=== PATIENT | female | born 1945 | race African-American/Black ===

== ENCOUNTER → 2021-01-25 | Outpatient (CLI) | payer OTHER | LOC: MRI 01-19 14:30 | PROVIDERS: ATTEND Internal Medicine | DX: I67.82 Cerebral ischemia (principal); F03.90 Unspecified dementia, unspecified severity, without behavioral disturbance, psychotic disturbance, mood disturbance, and anxiety ==

== ENCOUNTER 2021-05-05 14:13 | Emergency (ER) | payer OTHER ==
--- NOTE | ~2021-05-05 | EMS ---
[place] [id number] EMS Patient Care Report Name: BETSY LAUREN Room #: DEP CHICHO Alcantara#: [id number] Admission: 05/05/21 Attend Phys: Discharge: 05/05/21 Date of : 43 Report #: [id number] THIS REPORT FOR: //name// Report Transmitted: 05/09/2021 15:14 EMS Care Summary [place], [place]/[facility] Incident [id number] @ 05/05/2021 13:10 Incident Location [address] [place] [address] Patient BETSY LAUREN Female, 75 Years 1945 Patient Address [address] [place], [place] [id number] Patient History Congestive Heart Failure (CHF),Dementia,Alzheimer's,Novel Coronavirus (COVID-19), Patient Allergies No known allergies, Patient Medications Prilosec, Allopurinol, Apixaban, Pravastatin, Guaifenesin, Iron, Vitamin D, Oxygen, Chief Complaint HYPOGLYCEMIA Disposition Transported Lights/[place] Dispatch Reason Unconscious/Fainting Transported To [facility] Narrative DISPATCHED EMERGENCY ON AN UNCONSCIOUS. PUMPER 41 ON SCENE UPON ARRIVAL. FAMILY MEETS EMS AT DOOR. HOME HEALTH NURSE ON SCENE. 75 Y/O FEMALE LAYING SUPINE IN [address] [address] EMS Patient Care Report Name: BETSY LAUREN Room #: DEP CHICHO Alcantara#: [id number] Admission: 05/05/21 Attend Phys: Discharge: 05/05/21 Date of : 43 Report #: [id number] BED UNCONSCIOUS. GCS 3. PUPILS ARE EQUAL AND REACTIVE. PT IS ON HOME OXYGEN. V/S'S OBTAINED BY PUMPER 41 PRIOR TO EMS ARRIVAL AND STATE THAT PT'S BLOOD SUGAR IS 54. FAMILY STATES THAT PT DOES NOT HAVE A HISTORY OF DIABETES AND HAS NEVER HAD A LOW BLOOD SUGAR THAT THEY KNOW OF. STATES THAT PT WAS LAST SEEN NORMAL LAST NIGHT BEFORE BED. PT IS NORMALLY ALERT TO SELF AND FAMILY BUT NOT ALL THINGS DUE TO ALZHEIMER'S/DEMENTIA AND THAT IS NORMAL FOR HER. ALSO STATES THAT SHE OFTEN STAYS UP ALL NIGHT AND SLEEPS DURING THE DAY. STATES THAT PT IS ON HOME OXYGEN FOR COVID-19 RECOVERY. STATES THEY ATTEMPTED TO WAKE HER UP BUT WERE UNSUCCESSFUL SO THEY DECIDED TO WAIT UNTIL HER HOME HEALTH NURSE CAME WHICH WAS ABOUT 1 HOUR. 911 WAS CALLED AFTER PT'S NURSE WAS UNABLE TO WAKE PT. IV'S ATTEMPTED WITHOUT ESTABLISHMENT. FAMILY STATES THAT PT IS A "HARD STICK" AND THEY ALWAYS HAVE TROUBLE AT THE HOSPITAL WITH THIS. IV ESTABLISHED. V/S'S OBTAINED. D10 ADMINISTERED PER HYPOGLYCEMIA PROTOCOL. IV BECOMES DISLODGED AFTER 1OO ML OF D10 WAS ADMINISTERED. V/S'S OBTAINED. GLUCOSE IS NOW 48. IV'S ATTEMPTED WITHOUT ESTABLISHMENT. ECG OBTAINED. UNABLE TO ESTABLISH IV ACCESS. IO ESTABLISHED. IT IS NOW OBSERVED THAT PT'S H/R AND R/R START DECREASING RAPIDLY. PT NOW HAS NO PALPABLE PULSE AND IS APNEIC. ECG SHOWING PEA. MOVED PT WITHOUT INCIDENT TO FLOOR. FAST PATCH AED PADS PLACED. CPR CONTINUED. FLUIDS ADMINISTERED VIA IO. EPI ADMINISTERED. I-GEL PLACED AND OXYGEN ADMINISTERED. PT HAS PINK/RED FROTHY LIQUID COMING FROM I-GEL AND MOUTH. PULSE CHECK PERFORMED WITH NO PALPABLE CAROTID PULSE WITH RHYTHM SHOWING PEA. CPR CONTINUED. EPI ADMINISTERED. CAPNOGRAPHY OBTAINED. PT SUCTIONED. PULSE CHECK WITH PALPABLE CAROTID PULSE. RHYTHM SHOWING SINUS ARRYTHMIA. MOVED PT WITHOUT INCIDENT VIA LONG SPINE BOARD TO STRETCHER. MOVED PT WITHOUT INCIDENT TO AMBULANCE VIA STRETCHER. TRANSPORTED EMERGENCY TO [facility]. 12-LEAD ECG OBTAINED. V/S'S OBTAINED. RHYTHM CONTINUOUSLY MONITORED. PINK/RED FROTHY LIQUID TO I-GEL AND AROUND MOUTH. PT SUCTIONED. REPORT CALLED TO HOSPITAL. V/S'S OBTAINED. RHYTHM IS NOW SHOWING BRADYCARDIA. PALPABLE WEAK RADIAL PULSE. UNABLE TO AUSCULTATE B/P. PACING INITIATED PER PROTOCOL. ELECTRONIC AND MECHANICAL CAPTURE OBTAINED. H/R AND B/P IMPROVED. IO IS NO LONGER PATENT AND APPEARS TO HAVE PARTIALLY DISLODGED. 2ND IO ESTABLISHED. MOVED WITHOUT INCIDENT TO ER HOSPITAL BED. PT CARE TRANSFERRED TO ED RN. PACING DISCONTINUED IN ER BY HOSPITAL STAFF AFTER MOVING PT TO HOSPITAL BED. Initial Vitals @14:05P: 69,R: 5,EtCO2: 27, @14:04P: 22,BP: 93/69, @14:08P: 24,R: 5,EtCO2: 22, @14:08P: 23,BP: 120/75,GCS: 3,EtCO2: 20, @13:32P: 88,R: 14,BP: 99/55,GCS: 3,Glucose: 48,Revised Trauma: 8, @PTAP: 110,R: 14,BP: 98/40,Pain: 0/10,GCS: 3,Glucose: 54,Revised Trauma: 8, @13:28P: 90,R: 14,GCS: 3,Revised Trauma: 8, @13:45P: 0,R: 0,GCS: 3,Glucose: 98, @13:57P: 87,R: 7,GCS: 3,EtCO2: 14, @13:50P: 0,R: 8,GCS: 3, @13:55P: 94,R: 9,GCS: 3, [facility] [address] [place] [address] EMS Patient Care Report Name: BETSY LAUREN Room #: DEP CHICHO Alcantara#: [id number] Admission: 05/05/21 Attend Phys: Discharge: 05/05/21 Date of : 43 Report #: [id number] @14:00P: 94,R: 9,GCS: 3,EtCO2: 23, @14:01P: 78,R: 9,GCS: 3,EtCO2: 33, @14:02P: 41,R: 6,BP: 113/84,GCS: 3,EtCO2: 17,Revised Trauma: 6, @14:10P: 72,R: 6,GCS: 3,EtCO2: 14, @14:06P: 38,R: 5,GCS: 3,EtCO2: 24, Assessments @13:21MENTAL:Unresponsive,SKIN:HEENT:Eyes: Right Pupil: 4-mm,Eyes: Left Pupil: 4-mm,LUNG SOUNDS:ABDOMEN:PELVIS//GI:EXTREMITIES:Capillary Refill: Left Upper: < 2 Sec,Capillary Refill: Right Upper: < 2 Sec,PULSE:Radial: 2+ Normal,NEURO:@14:07MENTAL:Unresponsive,SKIN:HEENT:Eyes: Right: Non-Reactive,Eyes: Left: Non-Reactive,LUNG SOUNDS:ABDOMEN:PELVIS//GI:EXTREMITIES:PULSE:Carotid: 1+ Thready,NEURO: Impression Hypoglycemia (Not Diabetic) Procedures @13:46 Response: UnchangedSucceeded @13:47 Epinephrine 1:10 - 1 Milligrams (mg) - Intraosseous (IO) Response: Unchanged @13:50 Epinephrine 1:10 - 1 Milligrams (mg) - Intraosseous (IO) Response: Improved @14:10 Intraosseous - Normal Saline (.9% NaCl) 100cc (EZ-IO (Blue 25mm)) Site: PX-Gvjiy-Fenbf Distal Response: UnchangedSucceeded @14:13 Response: Unchanged @14:01 12-Lead ECG Response: UnchangedSucceeded @14:08 Response: Improved @13:39 3-Lead ECG Response: UnchangedSucceeded @13:20 ALS Assessment Response: UnchangedFailed @13:22 IV Therapy - cc (20 ga) Site: Forearm-Right Response: UnchangedFailed @13:24 IV Therapy - cc (18 ga) Site: Antecubital-Right Response: UnchangedFailed @13:25 IV Therapy - cc (22 ga) Site: Hand-Left Response: UnchangedFailed @13:26 IV Therapy - cc (20 ga) Site: Hand-Right Response: UnchangedFailed @13:28 IV Therapy - Saline Lock 10cc (20 ga) Site: Antecubital-Left Response: UnchangedSucceeded @13:29 Dextrose 10% - 100 Milliliters (ml) - Intravenous (IV) Response: Unchanged @13:32 General Comments Response: Unchanged @13:35 IV Therapy - cc (20 ga) Site: Forearm-Left Response: UnchangedFailed @13:37 IV Therapy - cc (22 ga) Site: Antecubital-Right Response: UnchangedFailed @13:42 IV Therapy - cc (22 ga) Site: Hand-Left Response: UnchangedFailed @13:43 Intraosseous - Normal Saline (.9% NaCl) 100cc (IO (Adult)) Site: BU-Htedt-Qalxc Distal Response: UnchangedSucceeded [address] [address] EMS Patient Care Report Name: BETSY LAUREN Room #: DEP ER MarineShanique#: [id number] Admission: 05/05/21 Attend Phys: Discharge: 05/05/21 Date of : 44 Report #: [id number] @PTAOxygen FlowRate: 4 Device: Nasal Cannula (NC) Response: Unchanged @13:49 iGEL Response: UnchangedSucceeded @13:49 Oxygen FlowRate: 15 Device: Bag Valve Mask (BVM) Response: UnchangedSucceeded @13:52 Suction Response: ImprovedSucceeded @13:51 General Comments Response: Unchanged @14:09 General Comments Response: Unchanged @13:57 Spinal Motion Restriction Response: UnchangedSucceeded @13:55 General Comments Response: Improved @14:00 Stretcher Response: Unchanged @14:05 Suction Response: ImprovedSucceeded Timeline AVIONICS TEST TECHNICIAN,Oxygen FlowRate: 4 Device: Nasal Cannula (NC) Response: Unchanged AVIONICS TEST TECHNICIAN,BP: 98/40 M,PULSE: 110,RR: 14 R,SPO2: Ox,ETCO2: ,B,PAIN: 0,GCS: 3, 13:08,Call Received 13:08,Dispatch Notified 13:10,Dispatched 13:13,En Route 13:17,On Scene 13:20,At Patient 13:20,ALS Assessment,Response: UnchangedFailed, 13:22,IV Therapy - cc 20 ga Site: Forearm-Right,Response: UnchangedFailed, 13:24,IV Therapy - cc 18 ga Site: Antecubital-Right,Response: UnchangedFailed, 13:25,IV Therapy - cc 22 ga Site: Hand-Left,Response: UnchangedFailed, 13:26,IV Therapy - cc 20 ga Site: Hand-Right,Response: UnchangedFailed, 13:28,IV Therapy - Saline Lock 10cc 20 ga Site: Antecubital-Left,Response: UnchangedSucceeded, 13:28,BP: 100/ M,PULSE: 90,RR: 14 R,SPO2: Ox,ETCO2: ,BG: ,PAIN: ,GCS: 3, 13:29,Dextrose 10% - 100 Milliliters (ml) - Intravenous (IV),Response: Unchanged 13:32,General Comments,Response: Unchanged 13:32,BP: 99/55 M,PULSE: 88,RR: 14 R,SPO2: Ox,ETCO2: ,B,PAIN: ,GCS: 3, 13:35,IV Therapy - cc 20 ga Site: Forearm-Left,Response: UnchangedFailed, 13:37,IV Therapy - cc 22 ga Site: Antecubital-Right,Response: UnchangedFailed, 13:39,3-Lead ECG,Response: UnchangedSucceeded, 13:42,IV Therapy - cc 22 ga Site: Hand-Left,Response: UnchangedFailed, 13:43,Intraosseous - Normal Saline (.9% NaCl) 100cc IO (Adult) Site: KX-Oqvsl-Mxpqg Distal,Response: UnchangedSucceeded, 13:45,BP: / M,PULSE: 0,RR: 0 R,SPO2: Ox,ETCO2: ,B,PAIN: ,GCS: 3, 13:46,Response: UnchangedSucceeded, 13:47,Epinephrine 1:10 - 1 Milligrams (mg) - Intraosseous (IO),Response: Unchanged 13:49,iGEL Response: UnchangedSucceeded, 13:49,Oxygen FlowRate: 15 Device: Bag Valve Mask (BVM) Response: UnchangedSucceeded, [address] [address] EMS Patient Care Report Name: BETSY LAUREN Room #: DEP M.R.#: [id number] Admission: 05/05/21 Attend Phys: Discharge: 05/05/21 Date of : 44 Report #: [id number] 13:50,BP: / M,PULSE: 0,RR: 8 R,SPO2: Ox,ETCO2: ,BG: ,PAIN: ,GCS: 3, 13:50,Epinephrine 1:10 - 1 Milligrams (mg) - Intraosseous (IO),Response: Improved 13:51,General Comments,Response: Unchanged 13:52,Suction Response: ImprovedSucceeded, 13:55,General Comments,Response: Improved 13:55,BP: / M,PULSE: 94,RR: 9 R,SPO2: Ox,ETCO2: ,BG: ,PAIN: ,GCS: 3, 13:57,Spinal Motion Restriction,Response: UnchangedSucceeded, 13:57,BP: / M,PULSE: 87,RR: 7 R,SPO2: Ox,ETCO2: 14 ,BG: ,PAIN: ,GCS: 3, 14:00,Stretcher,Response: Unchanged 14:00,BP: / M,PULSE: 94,RR: 9 R,SPO2: Ox,ETCO2: 23 ,BG: ,PAIN: ,GCS: 3, 14:00,Depart Scene 14:01,12-Lead ECG,Response: UnchangedSucceeded, 14:01,BP: / M,PULSE: 78,RR: 9 R,SPO2: Ox,ETCO2: 33 ,BG: ,PAIN: ,GCS: 3, 14:02,BP: 113/84 M,PULSE: 41,RR: 6 R,SPO2: Ox,ETCO2: 17 ,BG: ,PAIN: ,GCS: 3, 14:04,BP: 93/69 M,PULSE: 22,RR: R,SPO2: Ox,ETCO2: ,BG: ,PAIN: ,GCS: , 14:05,Suction Response: ImprovedSucceeded, 14:05,BP: / M,PULSE: 69,RR: 5 R,SPO2: Ox,ETCO2: 27 ,BG: ,PAIN: ,GCS: , 14:06,BP: / M,PULSE: 38,RR: 5 R,SPO2: Ox,ETCO2: 24 ,BG: ,PAIN: ,GCS: 3, 14:08,BP: / M,PULSE: 24,RR: 5 R,SPO2: Ox,ETCO2: 22 ,BG: ,PAIN: ,GCS: , 14:08,BP: 120/75 M,PULSE: 23,RR: R,SPO2: Ox,ETCO2: 20 ,BG: ,PAIN: ,GCS: 3, 14:08,Response: Improved 14:09,General Comments,Response: Unchanged 14:10,Intraosseous - Normal Saline (.9% NaCl) 100cc EZ-IO (Blue 25mm) Site: OP-Hytnl-Gxokj Distal,Response: UnchangedSucceeded, 14:10,BP: / M,PULSE: 72,RR: 6 R,SPO2: Ox,ETCO2: 14 ,BG: ,PAIN: ,GCS: 3, 14:11,At Destination 14:13,Response: Unchanged 14:26,Call Closed Disclaimer v1.1 Copyright 2021 [employer] This EMS Care Summary contains data elements from the applicable legal record (which may be displayed differently). It is designed to provide pertinent information for the following purposes: continuity of care, clinical quality, and state data reporting. The complete legal record is available to ED staff and administrators of the receiving hospital in [employer]'s Patient Tracker. All data is provided "as is."
--- NOTE | ~2021-05-05 | EMS ---
[address] [address] EMS Patient Care Report Name: BETSY LAUREN Room #: DEP CHICHO Alcantara#: [id number] Admission: 05/05/21 Attend Phys: Discharge: 05/05/21 Date of : 43 Report #: [id number] THIS REPORT FOR: //name// Report Transmitted: 05/08/2021 11:52 EMS Care Summary [place], [place]/[facility] Incident [id number] @ 05/05/2021 13:10 Incident Location [address] [place] [address] Patient BETSY LAUREN Female, 75 Years 1945 Patient Address [address] [place] [address] Patient History Congestive Heart Failure (CHF),Dementia,Alzheimer's,Novel Coronavirus (COVID-19), Patient Allergies No known allergies, Patient Medications Prilosec, Allopurinol, Apixaban, Pravastatin, Guaifenesin, Iron, Vitamin D, Oxygen, Chief Complaint HYPOGLYCEMIA Disposition Transported Lights/[place] Dispatch Reason Unconscious/Fainting Transported To [facility] Narrative DISPATCHED EMERGENCY ON AN UNCONSCIOUS. PUMPER [address] ON SCENE UPON ARRIVAL. FAMILY MEETS EMS AT DOOR. HOME HEALTH NURSE ON SCENE. 75 Y/O FEMALE LAYING SUPINE IN [address] [address] EMS Patient Care Report Name: BETSY LAUREN Room #: DEP CHICHO Alcantara#: [id number] Admission: 05/05/21 Attend Phys: Discharge: 05/05/21 Date of : 43 Report #: [id number] BED UNCONSCIOUS. GCS 3. PUPILS ARE EQUAL AND REACTIVE. PT IS ON HOME OXYGEN. V/S'S OBTAINED BY PUMPER 41 PRIOR TO EMS ARRIVAL AND STATE THAT PT'S BLOOD SUGAR IS 54. FAMILY STATES THAT PT DOES NOT HAVE A HISTORY OF DIABETES AND HAS NEVER HAD A LOW BLOOD SUGAR THAT THEY KNOW OF. STATES THAT PT WAS LAST SEEN NORMAL LAST NIGHT BEFORE BED. PT IS NORMALLY ALERT TO SELF AND FAMILY BUT NOT ALL THINGS DUE TO ALZHEIMER'S/DEMENTIA AND THAT IS NORMAL FOR HER. ALSO STATES THAT SHE OFTEN STAYS UP ALL NIGHT AND SLEEPS DURING THE DAY. STATES THAT PT IS ON HOME OXYGEN FOR COVID-19 RECOVERY. STATES THEY ATTEMPTED TO WAKE HER UP BUT WERE UNSUCCESSFUL SO THEY DECIDED TO WAIT UNTIL HER HOME HEALTH NURSE CAME WHICH WAS ABOUT 1 HOUR. 911 WAS CALLED AFTER PT'S NURSE WAS UNABLE TO WAKE PT. IV'S ATTEMPTED WITHOUT ESTABLISHMENT. FAMILY STATES THAT PT IS A "HARD STICK" AND THEY ALWAYS HAVE TROUBLE AT THE HOSPITAL WITH THIS. IV ESTABLISHED. V/S'S OBTAINED. D10 ADMINISTERED PER HYPOGLYCEMIA PROTOCOL. IV BECOMES DISLODGED AFTER 1OO ML OF D10 WAS ADMINISTERED. V/S'S OBTAINED. GLUCOSE IS NOW 48. IV'S ATTEMPTED WITHOUT ESTABLISHMENT. ECG OBTAINED. UNABLE TO ESTABLISH IV ACCESS. IO ESTABLISHED. IT IS NOW OBSERVED THAT PT'S H/R AND R/R START DECREASING RAPIDLY. PT NOW HAS NO PALPABLE PULSE AND IS APNEIC. ECG SHOWING PEA. MOVED PT WITHOUT INCIDENT TO FLOOR. FAST PATCH AED PADS PLACED. CPR CONTINUED. FLUIDS ADMINISTERED VIA IO. EPI ADMINISTERED. I-GEL PLACED AND OXYGEN ADMINISTERED. PT HAS PINK/RED FROTHY LIQUID COMING FROM I-GEL AND MOUTH. PULSE CHECK PERFORMED WITH NO PALPABLE CAROTID PULSE WITH RHYTHM SHOWING PEA. CPR CONTINUED. EPI ADMINISTERED. CAPNOGRAPHY OBTAINED. PT SUCTIONED. PULSE CHECK WITH PALPABLE CAROTID PULSE. RHYTHM SHOWING SINUS ARRYTHMIA. MOVED PT WITHOUT INCIDENT VIA LONG SPINE BOARD TO STRETCHER. MOVED PT WITHOUT INCIDENT TO AMBULANCE VIA STRETCHER. TRANSPORTED EMERGENCY TO [facility]. 12-LEAD ECG OBTAINED. V/S'S OBTAINED. RHYTHM CONTINUOUSLY MONITORED. PINK/RED FROTHY LIQUID TO I-GEL AND AROUND MOUTH. PT SUCTIONED. REPORT CALLED TO HOSPITAL. V/S'S OBTAINED. RHYTHM IS NOW SHOWING BRADYCARDIA. PALPABLE WEAK RADIAL PULSE. UNABLE TO AUSCULTATE B/P. PACING INITIATED PER PROTOCOL. ELECTRONIC AND MECHANICAL CAPTURE OBTAINED. H/R AND B/P IMPROVED. IO IS NO LONGER PATENT AND APPEARS TO HAVE PARTIALLY DISLODGED. 2ND IO ESTABLISHED. MOVED WITHOUT INCIDENT TO ER HOSPITAL BED. PT CARE TRANSFERRED TO ED RN. PACING DISCONTINUED IN ER BY HOSPITAL STAFF AFTER MOVING PT TO HOSPITAL BED. Initial Vitals @14:05P: 69,R: 5,EtCO2: 27, @14:04P: 22,BP: 93/69, @14:08P: 24,R: 5,EtCO2: 22, @14:08P: 23,BP: 120/75,GCS: 3,EtCO2: 20, @13:32P: 88,R: 14,BP: 99/55,GCS: 3,Glucose: 48,Revised Trauma: 8, @PTAP: 110,R: 14,BP: 98/40,Pain: 0/10,GCS: 3,Glucose: 54,Revised Trauma: 8, @13:28P: 90,R: 14,GCS: 3,Revised Trauma: 8, @13:45P: 0,R: 0,GCS: 3,Glucose: 98, @13:57P: 87,R: 7,GCS: 3,EtCO2: 14, @13:50P: 0,R: 8,GCS: 3, @13:55P: 94,R: 9,GCS: 3, [facility] [address] [place] [address] EMS Patient Care Report Name: BETSY LAUREN Room #: DEP CHICHO Alcantara#: [id number] Admission: 05/05/21 Attend Phys: Discharge: 05/05/21 Date of : 43 Report #: [id number] @14:00P: 94,R: 9,GCS: 3,EtCO2: 23, @14:01P: 78,R: 9,GCS: 3,EtCO2: 33, @14:02P: 41,R: 6,BP: 113/84,GCS: 3,EtCO2: 17,Revised Trauma: 6, @14:10P: 72,R: 6,GCS: 3,EtCO2: 14, @14:06P: 38,R: 5,GCS: 3,EtCO2: 24, Assessments @13:21MENTAL:Unresponsive,SKIN:HEENT:Eyes: Left Pupil: 4-mm,Eyes: Right Pupil: 4-mm,LUNG SOUNDS:ABDOMEN:PELVIS//GI:EXTREMITIES:Capillary Refill: Right Upper: < 2 Sec,Capillary Refill: Left Upper: < 2 Sec,PULSE:Radial: 2+ Normal,NEURO:@14:07MENTAL:Unresponsive,SKIN:HEENT:Eyes: Left: Non-Reactive,Eyes: Right: Non-Reactive,LUNG SOUNDS:ABDOMEN:PELVIS//GI:EXTREMITIES:PULSE:Carotid: 1+ Thready,NEURO: Impression Hypoglycemia (Not Diabetic) Procedures @13:46 Response: UnchangedSucceeded @13:47 Epinephrine 1:10 - 1 Milligrams (mg) - Intraosseous (IO) Response: Unchanged @13:50 Epinephrine 1:10 - 1 Milligrams (mg) - Intraosseous (IO) Response: Improved @14:10 Intraosseous - Normal Saline (.9% NaCl) 100cc (EZ-IO (Blue 25mm)) Site: QX-Fvxli-Fbykg Distal Response: UnchangedSucceeded @14:13 Response: Unchanged @14:01 12-Lead ECG Response: UnchangedSucceeded @14:08 Response: Improved @13:39 3-Lead ECG Response: UnchangedSucceeded @13:20 ALS Assessment Response: UnchangedFailed @13:22 IV Therapy - cc (20 ga) Site: Forearm-Right Response: UnchangedFailed @13:24 IV Therapy - cc (18 ga) Site: Antecubital-Right Response: UnchangedFailed @13:25 IV Therapy - cc (22 ga) Site: Hand-Left Response: UnchangedFailed @13:26 IV Therapy - cc (20 ga) Site: Hand-Right Response: UnchangedFailed @13:28 IV Therapy - Saline Lock 10cc (20 ga) Site: Antecubital-Left Response: UnchangedSucceeded @13:29 Dextrose 10% - 100 Milliliters (ml) - Intravenous (IV) Response: Unchanged @13:32 General Comments Response: Unchanged @13:35 IV Therapy - cc (20 ga) Site: Forearm-Left Response: UnchangedFailed @13:37 IV Therapy - cc (22 ga) Site: Antecubital-Right Response: UnchangedFailed @13:42 IV Therapy - cc (22 ga) Site: Hand-Left Response: UnchangedFailed @13:43 Intraosseous - Normal Saline (.9% NaCl) 100cc (IO (Adult)) Site: TL-Yxbty-Aubqm Distal Response: UnchangedSucceeded [address] [address] EMS Patient Care Report Name: BETSY LAUREN Room #: DEP ER MarineShanique#: [id number] Admission: 05/05/21 Attend Phys: Discharge: 05/05/21 Date of : 43 Report #: [id number] @PTAOxygen FlowRate: 4 Device: Nasal Cannula (NC) Response: Unchanged @13:49 iGEL Response: UnchangedSucceeded @13:49 Oxygen FlowRate: 15 Device: Bag Valve Mask (BVM) Response: UnchangedSucceeded @13:52 Suction Response: ImprovedSucceeded @13:51 General Comments Response: Unchanged @14:09 General Comments Response: Unchanged @13:57 Spinal Motion Restriction Response: UnchangedSucceeded @13:55 General Comments Response: Improved @14:00 Stretcher Response: Unchanged @14:05 Suction Response: ImprovedSucceeded Timeline VALVE PIPE IRRIGATOR,Oxygen FlowRate: 4 Device: Nasal Cannula (NC) Response: Unchanged VALVE PIPE IRRIGATOR,BP: 98/40 M,PULSE: 110,RR: 14 R,SPO2: Ox,ETCO2: ,B,PAIN: 0,GCS: 3, 13:08,Call Received 13:08,Dispatch Notified 13:10,Dispatched 13:13,En Route 13:17,On Scene 13:20,At Patient 13:20,ALS Assessment,Response: UnchangedFailed, 13:22,IV Therapy - cc 20 ga Site: Forearm-Right,Response: UnchangedFailed, 13:24,IV Therapy - cc 18 ga Site: Antecubital-Right,Response: UnchangedFailed, 13:25,IV Therapy - cc 22 ga Site: Hand-Left,Response: UnchangedFailed, 13:26,IV Therapy - cc 20 ga Site: Hand-Right,Response: UnchangedFailed, 13:28,IV Therapy - Saline Lock 10cc 20 ga Site: Antecubital-Left,Response: UnchangedSucceeded, 13:28,BP: 100/ M,PULSE: 90,RR: 14 R,SPO2: Ox,ETCO2: ,BG: ,PAIN: ,GCS: 3, 13:29,Dextrose 10% - 100 Milliliters (ml) - Intravenous (IV),Response: Unchanged 13:32,General Comments,Response: Unchanged 13:32,BP: 99/55 M,PULSE: 88,RR: 14 R,SPO2: Ox,ETCO2: ,B,PAIN: ,GCS: 3, 13:35,IV Therapy - cc 20 ga Site: Forearm-Left,Response: UnchangedFailed, 13:37,IV Therapy - cc 22 ga Site: Antecubital-Right,Response: UnchangedFailed, 13:39,3-Lead ECG,Response: UnchangedSucceeded, 13:42,IV Therapy - cc 22 ga Site: Hand-Left,Response: UnchangedFailed, 13:43,Intraosseous - Normal Saline (.9% NaCl) 100cc IO (Adult) Site: LT-Uqyhq-Ctshl Distal,Response: UnchangedSucceeded, 13:45,BP: / M,PULSE: 0,RR: 0 R,SPO2: Ox,ETCO2: ,B,PAIN: ,GCS: 3, 13:46,Response: UnchangedSucceeded, 13:47,Epinephrine 1:10 - 1 Milligrams (mg) - Intraosseous (IO),Response: Unchanged 13:49,iGEL Response: UnchangedSucceeded, 13:49,Oxygen FlowRate: 15 Device: Bag Valve Mask (BVM) Response: UnchangedSucceeded, [address] [address] EMS Patient Care Report Name: BETSY LAUREN Room #: DEP M.R.#: [id number] Admission: 05/05/21 Attend Phys: Discharge: 05/05/21 Date of : 43 Report #: [id number] 13:50,BP: / M,PULSE: 0,RR: 8 R,SPO2: Ox,ETCO2: ,BG: ,PAIN: ,GCS: 3, 13:50,Epinephrine 1:10 - 1 Milligrams (mg) - Intraosseous (IO),Response: Improved 13:51,General Comments,Response: Unchanged 13:52,Suction Response: ImprovedSucceeded, 13:55,General Comments,Response: Improved 13:55,BP: / M,PULSE: 94,RR: 9 R,SPO2: Ox,ETCO2: ,BG: ,PAIN: ,GCS: 3, 13:57,Spinal Motion Restriction,Response: UnchangedSucceeded, 13:57,BP: / M,PULSE: 87,RR: 7 R,SPO2: Ox,ETCO2: 14 ,BG: ,PAIN: ,GCS: 3, 14:00,Stretcher,Response: Unchanged 14:00,BP: / M,PULSE: 94,RR: 9 R,SPO2: Ox,ETCO2: 23 ,BG: ,PAIN: ,GCS: 3, 14:00,Depart Scene 14:01,12-Lead ECG,Response: UnchangedSucceeded, 14:01,BP: / M,PULSE: 78,RR: 9 R,SPO2: Ox,ETCO2: 33 ,BG: ,PAIN: ,GCS: 3, 14:02,BP: 113/84 M,PULSE: 41,RR: 6 R,SPO2: Ox,ETCO2: 17 ,BG: ,PAIN: ,GCS: 3, 14:04,BP: 93/69 M,PULSE: 22,RR: R,SPO2: Ox,ETCO2: ,BG: ,PAIN: ,GCS: , 14:05,Suction Response: ImprovedSucceeded, 14:05,BP: / M,PULSE: 69,RR: 5 R,SPO2: Ox,ETCO2: 27 ,BG: ,PAIN: ,GCS: , 14:06,BP: / M,PULSE: 38,RR: 5 R,SPO2: Ox,ETCO2: 24 ,BG: ,PAIN: ,GCS: 3, 14:08,BP: / M,PULSE: 24,RR: 5 R,SPO2: Ox,ETCO2: 22 ,BG: ,PAIN: ,GCS: , 14:08,BP: 120/75 M,PULSE: 23,RR: R,SPO2: Ox,ETCO2: 20 ,BG: ,PAIN: ,GCS: 3, 14:08,Response: Improved 14:09,General Comments,Response: Unchanged 14:10,Intraosseous - Normal Saline (.9% NaCl) 100cc EZ-IO (Blue 25mm) Site: RN-Yjhxr-Kjeyb Distal,Response: UnchangedSucceeded, 14:10,BP: / M,PULSE: 72,RR: 6 R,SPO2: Ox,ETCO2: 14 ,BG: ,PAIN: ,GCS: 3, 14:11,At Destination 14:13,Response: Unchanged 14:26,Call Closed Disclaimer [email or web address] Copyright 2021 [email or web address] This EMS Care Summary contains data elements from the applicable legal record (which may be displayed differently). It is designed to provide pertinent information for the following purposes: continuity of care, clinical quality, and state data reporting. The complete legal record is available to ED staff and administrators of the receiving hospital in [facility] Patient Tracker. All data is provided "as is."
== END 2021-05-05 14:44 ==
LOC: ER 14:13
DX: I46.9 Cardiac arrest, cause unspecified (principal); J96.90 Respiratory failure, unspecified, unspecified whether with hypoxia or hypercapnia; F02.80 Dementia in other diseases classified elsewhere, unspecified severity, without behavioral disturbance, psychotic disturbance, mood disturbance, and anxiety; I11.0 Hypertensive heart disease with heart failure; I50.9 Heart failure, unspecified; Z88.8 Allergy status to other drugs, medicaments and biological substances